=== PATIENT | female | born 1990 | race Two or more races ===

== ENCOUNTER 2025-08-28 02:52 | Inpatient (IN) | payer MEDICAID, OTHER ==
[~2025-08-28] VITALS: Ht 160 cm; Wt 97.5 kg
--- NOTE | 2025-08-28 03:18 | ED.PDOC ---
GI ASSESSMENT HPI Comments 35-year-old female with a past medical history of anxiety, depression, migraine and surgical history of lipoma (on the back) removal has come in to the ER for right upper quadrant abdominal pain. Patient reports that she woke up from sleep due to mild right upper quadrant pain which was 3/10 in intensity, which slowly increased to sharp pain, radiating towards the epigastric region, 9/10 in intensity, constant, with no aggravating or relieving factors, not associated with nausea, vomiting, diarrhea or any other symptoms. Patient denies chest pain, shortness of breath, urinary symptoms, palpitations, recent sick contacts, recent travel history. On inquiry, she states that she had some food which was oily and spicy before going to bed. On initial assessment, patient is A&O x4, in severe distress, vitals are stable temp 98, HR 74, RR 16, BP 126/69 mmHg and SpO2 at 98 in RA. Patient requires further workup and management. Chief Complaint: Abdominal Pain Time Seen by MD: 02:54 Reviewed Notes: Allergies Allergies: Coded Allergies: NO KNOWN ALLERGIES (Unverified , 08/28/25) Information Source: Patient Mode of Arrival: Ambulatory Timing: Hours Duration: Since onset Prehospital treatment: None Quality: Sharp Vomitus: None Stool: Normal Severity: Severe Recent: Other ( food consumption) Recent Hx of: None Pain Location: RUQ Modifying Factors: Nothing; Exertion, Food, Position, Movement, Antacids, Lying still Associated sign and symptoms: Abdominal Pain Past Medical History PAST MEDICAL HISTORY: Anxiety, Depression Past Medical History (Other): Migraine Surgical History (Other): Lipoma of back removal ELECTRIC SIGN WIRER History: Denies all ELECTRIC SIGN WIRER Hx Family History Family History: Reviewed,noncontributory to illness Family History (Other): Both parents have diabetes mellitus Social History Smoker: Non-Smoker Alcohol: Occasionally Drugs: Denies Drug Use Lives In: Home Constitutional: denies: chills, diaphoresis, fatigue, fever, malaise, sweats, weakness, others EENTM: denies: blurred vision, double vision, ear bleeding, ear discharge, ear drainage, ear pain, ear ringing, eye pain, eye redness, hearing loss, mouth pain, mouth swelling, nasal discharge, nose bleeding, nose congestion, nose pain, photophobia, tearing, throat pain, throat swelling, voice changes, others Respiratory: denies: cough, hemoptysis, orthopnea, SOB at rest, shortness of breath, SOB with excertion, stridor, wheezing, others Cardiovascular: denies: chest pain, dizzy spells, diaphoresis, Dyspnea on exertion, edema, irregular heart beat, left arm pain, lightheadedness, palpitations, PND, syncope, others Gastrointestinal: reports: abdominal pain; denies: abdomen distended, blood streaked bowels, constipated, diarrhea, dysphagia, difficulty swallowing, hematemesis, melena, nausea, poor appetite, poor fluid intake, rectal bleeding, rectal pain, vomiting, others Genitourinary: denies: abnormal vagina bleeding, burning, dyspareunia, dysuria, flank pain, frequency, hematuria, incontinence, pain, , vagina discharge, urgency, others Neurological: denies: dizziness, fainting, headache, left sided numbness, left sided weakness, numbness, paresthesia, pre-existing deficit, right sided n umbness, right sided weakness, seizure, speech problems, tingling, tremors, weakness, others Musculoskeletal: denies: back pain, gout, joint pain, joint swelling, muscle pain, muscle stiffness, neck pain, others Integumetry: denies: bruises, change in color, change in hair/nails, dryness, laceration, lesions, lumps, rash, wounds, others Allergic/Immunocompromised: denies: Difficulty Healing, Frequent Infections, Hives, Itching, others Hematologic/Lymphatic: denies: anemia, blood clots, easy bleeding, easy bruising, swollen glands, others Endocrine: denies: excessive hunger, excessive sweating, excessive thirst, excessive urination, flushing, intolerance to cold, intolerance to heat, unexplained weight gain, unexplained weight loss, others Psychiatric: denies: anxiety, bipolar disorder, depression, hopeless, panic disorder, schizophrenia, sleepless, suicidal, others Physical Exam General Appearance: Obese HEENT: Other (Maintains eye contact, no icterus, no pallor) Neck: Full Range of Motion, Other (No cervical lymphadenopathy, no JVD) Respiratory: No Accessory Muscle Use, Normal Breath Sounds, Other (No stridor, wheezing or rhonchi heard) Cardiovascular: No Edema, No JVD, No Murmur, Regular Rate/Rhythm Breast Exam: Deferred Gastrointestinal: Epigastric, No Organomegaly, No Pulsatile Mass, Normal Bowel Sounds, RUQ, Tenderness, Other (Mccoy's sign positive, No guarding, no rebound tenderness, no masses felt) Genitalia: Deferred Pelvic: Deferred Rectal: Deferred Extremities: Normal inspection, Normal range of motion, Non-tender Neurologic: Other (No sensory motor deficits, no facial droop) Cerebellar Function: Unable to Test Reflexes: Normal Skin: Normal Color Lymphatic: Other (No cervical lymphadenopathy) Was a procedure done? Was a procedure done?: No GI differential Dx Differential Diagnosis: Cholecystitis, Gastritis/PUD, Pancreatitis X-Ray, Labs, Meds, VS Vital Signs Date Time Temp Pulse Resp B/P (MAP) Pulse Ox O2 Delivery O2 Flow Rate FiO2 08/28/25 06:53 65 22 93/60 08/28/25 06:36 98.1 72 12 93/60 (71) 96 98.1 08/28/25 04:01 71 20 97 Room Air* 0 21 21 08/28/25 03:58 98.1 73 20 102/60 (74) 96 98.1 08/28/25 03:32 69 19 110/59 08/28/25 02:56 98.0 74 16 126/69 98 98.0 Lab Test 08/28/25 05:02 08/28/25 03:12 Range/Units Urine Color Light-yellow Yellow Urine Clarity Clear Clear Urine pH 5.0 5.0-9.0 Urine Specific [place] 1.010 1.001-1.035 Urine Protein Negative Negative Urine Ketones Negative Negative Urine Blood Negative Negative /uL Urine Nitrite Negative Negative Urine Bilirubin Negative Negative Urine Urobilinogen Normal Negative mg/dL Urine Leukocyte Esterase Trace Negative /uL Urine RBC None seen 0 - 4 /hpf Urine Microscopic WBC 1 0-5 /HPF Urine Squamous Epithelial Cells None seen <5 /hpf Urine Bacteria None seen None Seen /hpf Urine Mucus Few None Seen Urine Glucose Normal Normal mg/dL Urine Test Negative Negative White Blood Count 13.9 H 4.4-10.8 10^3/uL Red Blood Count 4.57 4.0-5.20 10^6/uL Hemoglobin 12.4 12.2-16.2 g/dL Hematocrit 37.4 36.0-46.0 % Mean Corpuscular Volume 81.9 80.0-100.0 fL Mean Corpuscular Hemoglobin 27.0 L 28.0-32.0 pg Mean Corpuscular Hemoglobin Concent 33.0 32.0-36.0 g/dL Red Cell Distribution Width 15.1 H 11.8-14.3 % Platelet Count 348 140-450 10^3/uL Mean Platelet Volume 7.0 6.9-10.8 fL Neutrophils (%) (Auto) 57.5 37.0-80.0 % Lymphocytes (%) (Auto) 36.0 10.0-50.0 % Monocytes (%) (Auto) 5.1 0.0-12.0 % Eosinophils (%) (Auto) 0.8 0.0-7.0 % Basophils (%) (Auto) 0.6 0.0-2.0 % Neutrophils # (Auto) 8.0 1.6-8.6 10 ^3/uL Lymphocytes # (Auto) 5.0 0.4-5.4 10 ^3/uL Monocytes # (Auto) 0.7 0-1.3 10 ^3/uL Eosinophils # (Auto) 0.1 0-0.8 10 ^3/uL Basophils # (Auto) 0.1 0-0.2 10 ^3/uL Nucleated Red Blood Cells 0.2 % Sodium Level 144 136-145 mmol/L Potassium Level 3.9 3.5-5.1 mmol/L Chloride Level 107 98-107 mmol/L Carbon Dioxide Level 25 20-31 mmol/L Anion Gap 12 5-15 Blood Urea Nitrogen 10 9-23 mg/dL Creatinine 0.70 0.550-1.02 mg/dL Glomerular Filtration Rate Calc 117 >90 mL/min BUN/Creatinine Ratio 14.3 10.0-20.0 Serum Glucose 106 74-106 mg/dL Calcium Level 9.2 8.7-10.4 mg/dL Total Bilirubin 0.3 0.2-1.0 mg/dL Aspartate Amino Transferase (AST) 55 H 13-40 U/L Alanine Aminotransferase (ALT) 25 7-40 U/L Alkaline Phosphatase 93 46-116 U/L Total Protein 6.7 5.7-8.2 g/dL Albumin 4.1 3.2-4.8 g/dL Lipase 61 H 12-53 U/L Current Medications Medications (Trade) Dose Ordered Sig/Joaquim Route Start Time Stop Time Status Last Admin Sodium Chloride 1,000 ml @ 1,000 mls/hr Q1H ONCE IV 08/28/25 03:15 08/28/25 04:14 DC 08/28/25 03:33 Ondansetron HCl (Zofran) 4 mg ONCE ONCE IV 08/28/25 03:15 08/28/25 03:16 DC 08/28/25 03:33 Morphine Sulfate 4 mg ONCE ONCE IV 08/28/25 03:15 08/28/25 03:16 DC 08/28/25 03:32 Pantoprazole Sodium (Protonix) 40 mg ONCE ONCE IV 08/28/25 03:15 08/28/25 03:16 DC 08/28/25 03:33 Images Reviewed?: Images reviewed and evaluated by me Time of 1ST Reevaluation: 03:45 Reevaluation 1ST: Improved Patient Education/Counseling: Diagnosis, Treatment Family Education/Counseling: No Family Present Comments Patient came in with right upper quadrant abdominal pain, radiating to the epigastric region. We gave her IV pantoprazole 40 mg, morphine sulfate 4 mg IV, ondansetron 4 mg IV and 1 bolus of sodium chloride 0.9% IV. CBC reveals high WBC count 13.9. BMP shows AST 55. Lipase levels is elevated- 61. An ultrasound of the abdomen of the right upper quadrant was ordered which showed Cholelithiasis. Patient requires inpatient admission for further management. HIDA scan has been ordered. SEPSIS Sepsis Screen Date sepsis recognized/suspect: Aug 28, 2025 Time Sepsis recognized/suspect: 0300 Recent Procedure: No On Antibiotic Therapy: No Respiratory Rate >20: No Heart Rate >90: No Temp<36 C (96.8 F) or >38.3 C: No SBP <90 or MAP <65 mmHG: No New Acute Mental Status Change: No Is the patient on CPAP, BIPAP,: No Physician Orders Abdomen Limited (08/28/25 03:04) Vital Signs Date Time Temp Pulse Resp B/P (MAP) Pulse Ox O2 Delivery O2 Flow Rate FiO2 08/28/25 06:53 65 22 93/60 08/28/25 06:36 98.1 72 12 93/60 (71) 96 98.1 08/28/25 04:01 71 20 97 Room Air* 0 21 21 08/28/25 03:58 98.1 73 20 102/60 (74) 96 98.1 08/28/25 03:32 69 19 110/59 08/28/25 02:56 98.0 74 16 126/69 98 98.0 Laboratory Tests Test 08/28/25 03:12 White Blood Count 13.9 10^3/uL (4.4-10.8) H Medications Medications Dose Ordered Sig/Joaquim Route Start Time Stop Time Status Last Admin Dose Admin Morphine Sulfate 4 mg ONCE ONCE IV 08/28/25 03:15 08/28/25 03:16 DC 08/28/25 03:32 Ondansetron HCl 4 mg ONCE ONCE IV 08/28/25 03:15 08/28/25 03:16 DC 08/28/25 03:33 Pantoprazole Sodium 40 mg ONCE ONCE IV 08/28/25 03:15 08/28/25 03:16 DC 08/28/25 03:33 Sodium Chloride 1,000 ml @ 1,000 mls/hr Q1H ONCE IV 08/28/25 03:15 08/28/25 04:14 DC 08/28/25 03:33 Departure 1 Departure Time of Disposition: 07:20 Impression: Primary Impression: Cholelithiasis Disposition: 09 ADMITTED INPATIENT Admit to: Med Surg Condition: Unstable Critical Care Note Critical Care Time?: No Stability Stability form required: No Heart Score Heart Score: Heart Score Response (Comments) Value History N/A 0 EKG N/A 0 Age N/A 0 Risk Factors N/A 0 Troponin N/A 0 Total 0 JARED HARTMAN RESIDENT Aug 28, 2025 03:18
[2025-08-28 03:21] LABS: Hematocrit 37.4 % (36.0-46.0); Hemoglobin 12.4 g/dL (12.2-16.2); Mean Corpuscular Hemoglobin 27.0 pg (28.0-32.0); Mean Corpuscular Volume 81.9 fL (80.0-100.0); Nucleated Red Blood Cells % 0.2 %
[2025-08-28] MEDS: MORPHINE SULFATE 4 MG/ML SYR/VIAL IV ONE (03:32)
[2025-08-28] MEDS: ONDANSETRON HCL 4 MG/2 ML VIAL IV ONE (03:33)
[2025-08-28] MEDS: SODIUM CHLORIDE 0.9% 1,000 ML IV ONE ×2 (03:33→11:49)
[2025-08-28] MEDS: PANTOPRAZOLE 40 MG/10 ML VIAL INJ IV ONE (03:33)
[2025-08-28 03:36] LABS: Alanine Aminotransferase 25 U/L (7-40); Albumin 4.1 g/dL (3.2-4.8); Alkaline Phosphatase 93 U/L (46-116); BUN/Creatinine Ratio 14.3 (10.0-20.0); Bilirubin, Total 0.3 mg/dL (0.2-1.0); Blood Urea Nitrogen 10 mg/dL (9-23); Calcium 9.2 mg/dL (8.7-10.4); Carbon Dioxide 25 mmol/L (20-31); Total Protein 6.7 g/dL (5.7-8.2)
[2025-08-28 03:39] LABS: Glucose 106 mg/dL (74-106); Lipase 61 U/L (12-53)
[2025-08-28 03:46] LABS: Anion Gap 12 (5-15); Potassium 3.9 mmol/L (3.5-5.1); Sodium 144 mmol/L (136-145)
[2025-08-28 03:53] LABS: Chloride 107 mmol/L (98-107)
[2025-08-28 04:01] VITALS: PULSE 71; RESP 20; O2SAT 97
[2025-08-28 05:41] LABS: Urine Protein, UAD Negative (Negative)
--- NOTE | 2025-08-28 07:07 | DVH ---
INDICATION: right upper quadrant pain TECHNIQUE: Multiple real-time sonographic images were obtained of the right upper quadrant. COMPARISON: None FINDINGS: The liver demonstrates homogeneous echotexture without focal mass lesions. The liver measures 14.8 cm. There is no intrahepatic or extrahepatic ductal dilatation. The common duct measures 0.6 cm. Cholelithiasis. The gallbladder wall measures 0.2 cm and is within normal limits. The right kidney measures 9.9 cm. The right kidney is normal in contour, size, and shape. The echogenicity is normal. There is no hydronephrosis. The pancreas is not well visualized due to overlying bowel gas. IMPRESSION: Cholelithiasis.
[2025-08-28 08:15] VITALS: PULSE 65; RESP 20; O2SAT 96
[2025-08-28] MEDS ORDERED: HYDROcodone-ACET 5/325MG TAB PO PRN (10:45)
[2025-08-28] MEDS ORDERED: ACETAMINOPHEN 325 MG TAB PO PRN (10:45)
[2025-08-28] MEDS ORDERED: DOCUSATE SOD 100 MG CAP PO PRN (10:45)
[2025-08-28] MEDS ORDERED: MORPHINE SULFATE INJ 2 MG/ml SYRG IV PRN (10:45)
[2025-08-28] MEDS ORDERED: ONDANSETRON HCL 4 MG/2 ML VIAL IV PRN ×2 (10:45→15:30)
--- NOTE | 2025-08-28 10:45 | DVHHP2 ---
History of Present Illness Reason for Visit: Abdominal Pain History of Present Illness Kira Jordan is a 35-year-old female with past medical history of migraines, and GERD, who came to the hospital for abdominal pain. Patient states she last ate last night food about 1900. She became bloated shortly after eating, but went to bed. Was woken up about 0230 due to pain. She thought she needed to go to the bathroom, but nothing would come out. After going back to bed her pain increased significantly where she woke up her and came to the ER. Patient states she was on Zepbound for about 2-3 months, but stopped taking it recently due to the side effects. She was experiencing nausea, vomiting, and constipation. Patient did get a tattoo yesterday as well. COUNTER CASER: Migraine GI: GERD Past Surgical History: Other (lipoma removal from back), Tonsillectomy Smoke: Quit (1 year ago) ALCOHOL: rare Drugs: None Lives: with Family Domestic Violence: Neg Review of Systems Constitutional: No: Fever, Chills, Sweats, Weakness, Malaise, Other Eyes: No: Pain, Vision change, Conjunctivae inflammation, Eyelid inflammation, Other, Redness ENT: No: Ear pain, Ear discharge, Nose pain, Nose discharge, Nose congestion, Mouth pain, Mouth swelling, Throat pain, Throat swelling, Other Respiratory: No: Cough, Dry, Shortness of breath, SOB with excertion, Wheezing, Hemoptysis, Pleuritic Pain, Sputum, Wheezing, Other Cardiovascular: No: Chest Pain, Palpitations, Orthopnea, Paroxysmal Noc. Dyspnea, Edema, Lt Headedness, Other Gastrointestinal: Abdominal Pain, Other (bloating); No: Nausea, Vomiting, Diarrhea, Constipation, Melena, Hematochezia Genitourinary: No Dysuria, No Frequency, No Incontinence, No Hematuria, No Retention, No Other Musculoskeletal: No: other, neck pain, shoulder pain, arm pain, back pain, hand pain, leg pain, foot pain Skin: No: Rash, Lesions, Jaundice, Bruising, Other Neurological: No: Weakness, Numbness, Incoordination, Change in speech, Confusion, Seizures, Other Allergies: Coded Allergies: NO KNOWN ALLERGIES (Unverified , 08/28/25) Medications Current Medications Medications Dose Ordered Sig/Joaquim Route Start Time Stop Time Status Last Admin Dose Admin Sodium Chloride 1,000 ml @ 100 mls/hr Q10H IV 08/28/25 10:45 UNV Acetaminophen/ Hydrocodone Bitart 1 tab Q4HP PRN PO 08/28/25 10:45 UNV Ondansetron HCl 4 mg Q4HP PRN IV 08/28/25 10:45 UNV Docusate Sodium 100 mg BIDPRN PRN PO 08/28/25 10:45 UNV Acetaminophen 650 mg Q6HP PRN PO 08/28/25 10:45 UNV Morphine Sulfate 2 mg Q4HPRN PRN IV 08/28/25 10:45 UNV Exam Vital Signs Vital Signs Date Time Temp Pulse Resp B/P (MAP) Pulse Ox O2 Delivery O2 Flow Rate FiO2 08/28/25 08:15 65 20 96 Room Air* 0 21 08/28/25 07:15 98.2 102/66 (78) 98.2 General Appearance: Alert, Oriented X3, Cooperative, mild distress HEENT: Atraumatic, PERRLA, Mucous membr. moist/pink Respiratory: Clear to auscultation, Normal air movement Cardiovascular: Regular rate, Normal S1, Normal S2, No murmurs Abdominal: Other (RUQ tenderness) Extremities: No clubbing, No cyanosis, No edema, Normal pulses Skin: No rashes, No breakdown, No significant lesion Neuro: Normal gait, Normal speech, Strength at 5/5 X4 ext, Normal tone Psych/Mental Status: Mental status NL, Mood NL Labs/Xrays Labs Test 08/28/25 05:02 08/28/25 03:12 Range/Units Urine Color Light-yellow Yellow Urine Clarity Clear Clear Urine pH 5.0 5.0-9.0 Urine Specific [place] 1.010 1.001-1.035 Urine Protein Negative Negative Urine Ketones Negative Negative Urine Blood Negative Negative /uL Urine Nitrite Negative Negative Urine Bilirubin Negative Negative Urine Urobilinogen Normal Negative mg/dL Urine Leukocyte Esterase Trace Negative /uL Urine RBC None seen 0 - 4 /hpf Urine Microscopic WBC 1 0-5 /HPF Urine Squamous Epithelial Cells None seen <5 /hpf Urine Bacteria None seen None Seen /hpf Urine Mucus Few None Seen Urine Glucose Normal Normal mg/dL Urine Test Negative Negative White Blood Count 13.9 H 4.4-10.8 10^3/uL Red Blood Count 4.57 4.0-5.20 10^6/uL Hemoglobin 12.4 12.2-16.2 g/dL Hematocrit 37.4 36.0-46.0 % Mean Corpuscular Volume 81.9 80.0-100.0 fL Mean Corpuscular Hemoglobin 27.0 L 28.0-32.0 pg Mean Corpuscular Hemoglobin Concent 33.0 32.0-36.0 g/dL Red Cell Distribution Width 15.1 H 11.8-14.3 % Platelet Count 348 140-450 10^3/uL Mean Platelet Volume 7.0 6.9-10.8 fL Neutrophils (%) (Auto) 57.5 37.0-80.0 % Lymphocytes (%) (Auto) 36.0 10.0-50.0 % Monocytes (%) (Auto) 5.1 0.0-12.0 % Eosinophils (%) (Auto) 0.8 0.0-7.0 % Basophils (%) (Auto) 0.6 0.0-2.0 % Neutrophils # (Auto) 8.0 1.6-8.6 10 ^3/uL Lymphocytes # (Auto) 5.0 0.4-5.4 10 ^3/uL Monocytes # (Auto) 0.7 0-1.3 10 ^3/uL Eosinophils # (Auto) 0.1 0-0.8 10 ^3/uL Basophils # (Auto) 0.1 0-0.2 10 ^3/uL Nucleated Red Blood Cells 0.2 % Sodium Level 144 136-145 mmol/L Potassium Level 3.9 3.5-5.1 mmol/L Chloride Level 107 98-107 mmol/L Carbon Dioxide Level 25 20-31 mmol/L Anion Gap 12 5-15 Blood Urea Nitrogen 10 9-23 mg/dL Creatinine 0.70 0.550-1.02 mg/dL Glomerular Filtration Rate Calc 117 >90 mL/min BUN/Creatinine Ratio 14.3 10.0-20.0 Serum Glucose 106 74-106 mg/dL Calcium Level 9.2 8.7-10.4 mg/dL Total Bilirubin 0.3 0.2-1.0 mg/dL Aspartate Amino Transferase (AST) 55 H 13-40 U/L Alanine Aminotransferase (ALT) 25 7-40 U/L Alkaline Phosphatase 93 46-116 U/L Total Protein 6.7 5.7-8.2 g/dL Albumin 4.1 3.2-4.8 g/dL Lipase 61 H 12-53 U/L TECHNIQUE: Multiple real-time sonographic images were obtained of the right upper quadrant. FINDINGS: The liver demonstrates homogeneous echotexture without focal mass lesions. The liver measures 14.8 cm. There is no intrahepatic or extrahepatic ductal dilatation. The common duct measures 0.6 cm. Cholelithiasis. The gallbladder wall measures 0.2 cm and is within normal limits. The right kidney measures 9.9 cm. The right kidney is normal in contour, size, a nd shape. The echogenicity is normal. There is no hydronephrosis. The pancreas is not well visualized due to overlying bowel gas. IMPRESSION: Cholelithiasis. SEPSIS Sepsis Screen Date sepsis recognized/suspect: Aug 28, 2025 Time Sepsis recognized/suspect: 814 Recent Procedure: No On Antibiotic Therapy: Yes Respiratory Rate >20: No Heart Rate >90: No Temp<36 C (96.8 F) or >38.3 C: No SBP <90 or MAP <65 mmHG: No New Acute Mental Status Change: No Is the patient on CPAP, BIPAP,: No Physician Orders Abdomen Limited (08/28/25 03:04) Nm Hida Scan (08/28/25 07:20) Admit (08/28/25 10:40) Code Status (08/28/25 10:40) Sodium Chloride 0.9% (08/28/25 10:45) Hydrocodone-Acet 5/325mg Tab (Shanks 5/32 (08/28/25 10:45) Ondansetron Hcl (Zofran) (08/28/25 10:45) Docusate Sodium Capsule (Colace Capsule) (08/28/25 10:45) Complete Blood Count (08/29/25 04:00) Comprehensive Metabolic Panel (08/29/25 04:00) Npo (Nothing By Mouth) Diet (08/28/25 Lunch) Condition: Serious (08/28/25 10:40) Acetaminophen Tablet (Tylenol Tablet) (08/28/25 10:45) Morphine Sulfate Injection (08/28/25 10:45) * Surgical Consult (08/28/25 ) Vital Signs Date Time Temp Pulse Resp B/P (MAP) Pulse Ox O2 Delivery O2 Flow Rate FiO2 08/28/25 08:15 65 20 96 Room Air* 0 21 08/28/25 07:15 98.2 65 20 102/66 (78) 96 98.2 08/28/25 06:53 65 22 93/60 08/28/25 06:36 98.1 72 12 93/60 (71) 96 98.1 08/28/25 04:01 71 20 97 Room Air* 0 21 21 08/28/25 03:58 98.1 73 20 102/60 (74) 96 98.1 08/28/25 03:32 69 19 110/59 08/28/25 02:56 98.0 74 16 126/69 98 98.0 Laboratory Tests Test 08/28/25 03:12 White Blood Count 13.9 10^3/uL (4.4-10.8) H Medications Medications Dose Ordered Sig/Joaquim Route Start Time Stop Time Status Last Admin Dose Admin Morphine Sulfate 4 mg ONCE ONCE IV 08/28/25 03:15 08/28/25 03:16 DC 08/28/25 03:32 4 MG Ondansetron HCl 4 mg ONCE ONCE IV 08/28/25 03:15 08/28/25 03:16 DC 08/28/25 03:33 4 MG Pantoprazole Sodium 40 mg ONCE ONCE IV 08/28/25 03:15 08/28/25 03:16 DC 08/28/25 03:33 40 MG Sodium Chloride 1,000 ml @ 1,000 mls/hr Q1H ONCE IV 08/28/25 03:15 08/28/25 04:14 DC 08/28/25 03:33 1,000 MLS/HR Assessment/Plan Assessment/Plan Assessment: Cholelithiasis, Leukocytosis, Transaminitis, Febrile, Plan: Admit to Med-Surg, Surgical consult, NPO, IV hydration, IV antibiotics, Possible MRCP depending on Hida Scan results, Home medications reconciled, Plan discussed with: Patient My Orders Orders - KAROLYN AHUJA [employer]NAGER [employer]IV[employer] Procedure Category Date Status Time Admit ADMIT 08/28/25 Transmitted 10:40 Code Status CODE 08/28/25 Transmitted 10:40 Sodium Chloride 0.9% PHA 08/28/25 Logged 10:45 Hydrocodone-Acet PHA 08/28/25 Logged 5/325mg Tab (Shanks 10:45 Ondansetron Hcl PHA 08/28/25 Logged (Zofran) 10:45 Docusate Sodium PHA 08/28/25 Logged Capsule (Colace 10:45 Complete Blood Count LAB 08/29/25 Verified 04:00 Comprehensive LAB 08/29/25 Verified Metabolic Panel 04:00 Npo (Nothing By DIET 08/28/25 Transmitted Mouth) Diet Lunch Condition: Serious NATALIIA 08/28/25 In Process 10:40 Acetaminophen Tablet PHA 08/28/25 Logged (Tylenol Tablet) 10:45 Morphine Sulfate PHA 08/28/25 Logged Injection 10:45 * Surgical Consult CONS 08/28/25 Transmitted Date of Service: Aug 28, 2025 Billing Provider: KAROLYN AHUJA Common Visit Codes: [id number] INP/OBS CARE (MOD) KAROLYN AHUJA Aug 28, 2025 10:45
--- NOTE | 2025-08-28 11:21 | DVH ---
Procedure: NM NM HIDA SCAN Exam Date: 08/28/2025 07:45 AM Clinical History: Cholelithiasis on ultrasound Comparison Study: None Nuclear Medicine Hepatobiliary Scan. Technique: Following the intravenous administration of 5 mCi of technetium 99m labeled Choletec multiple planar abdominal planar images were obtained in anterior projection in 5 minute intervals for 30 minutes . Right lateral images were obtained at 60 minutes after injection. Findings/Impression: The liver appears grossly normal in size. Gallbladder and small bowel are not definitively visualized which may reflect hepatic dysfunction or cholecystitis/ common bile duct obstruction. If indicated, consider further evaluation with MRCP.
[2025-08-28 11:30] VITALS: BP 96/59; PULSE 64; RESP 16; TEMP 97.8; O2SAT 97
[2025-08-28] MEDS: SODIUM CHLORIDE 0.9% 1,000 ML IV SCH (11:45)
[2025-08-28] MEDS ORDERED: OMEP-448 PO (12:03)
[2025-08-28] MEDS: BUPIVACAINE HCL 0.25% P/F 10 ML VIAL ONE (12:32)
[2025-08-28] MEDS: FAMOTIDINE (10MG/ML) 2ML VL IV ONE (13:05)
--- NOTE | 2025-08-28 13:07 | DVHINCON2 ---
Consultation - Surgical Date Seen: Aug 28, 2025 Referring Physician Reason for Consultation Cholecystitis History of Present Illness History of Present Illness Mrs. Jordan is a 35-year-old female who presents with right upper quadrant pain that awoke her last night around 2:30 a.m.. Last meal was some spicy foods, which triggered the pain. She has never felt this pain before. Denies nausea and/or vomiting. Denies fevers, chills, changes in urinary or stooling habits. Past Medical/Surgical History Past Medical/Surgical History Past medical history GERD, migraines Past surgical history right flank lipoma excision, tonsillectomy Family and Social History Family and Social History Family history noncontributory ETOH/T Ob/drugs denies Allergies and medications Allergies: Coded Allergies: NO KNOWN ALLERGIES (Unverified , 08/28/25) Home Meds Reported Medications Omeprazole (Omeprazole Dr) 40 Mg Cap, 40 MG PO DAILY, CAP 08/28/25 Review of systems Review of Systems: Deferred Examination Vital signs Vital Signs Date Time Temp Pulse Resp B/P (MAP) Pulse Ox O2 Delivery O2 Flow Rate FiO2 08/28/25 11:30 97.8 64 16 96/59 (71) 97 97.8 08/28/25 08:15 Room Air* 0 21 Medications Current Medications Medications (Trade) Dose Ordered Sig/Joaquim Route PRN Reason Start Time Stop Time Status Last Admin Sodium Chloride 1,000 ml @ 100 mls/hr Q10H IV 08/28/25 10:45 08/28/25 11:45 Acetaminophen/ Hydrocodone Bitart (Sigel 5/325MG Tab) 1 tab Q4HP PRN PO MODERATE PAIN (4-6 PAIN SCALE) 08/28/25 10:45 Ondansetron HCl (Zofran) 4 mg Q4HP PRN IV NAUSEA / VOMITING 08/28/25 10:45 Docusate Sodium (Colace Capsule) 100 mg BIDPRN PRN PO FOR CONSTIPATION 08/28/25 10:45 Acetaminophen (Tylenol Tablet) 650 mg Q6HP PRN PO PAIN SCALE 1-3 OR TEMP>100.4 08/28/25 10:45 Morphine Sulfate 2 mg Q4HPRN PRN IV SEVERE PAIN (7-10 PAIN SCALE) 08/28/25 10:45 Ceftriaxone Sodium 50 ml @ 100 mls/hr DAILY@09 IV 08/29/25 09:00 Pantoprazole Sodium (Protonix) 40 mg DAILY IV 08/29/25 10:00 UNV Laboratory Labs Test 08/28/25 05:02 08/28/25 03:12 Range/Units Urine Color Light-yellow Yellow Urine Clarity Clear Clear Urine pH 5.0 5.0-9.0 Urine Specific [place] 1.010 1.001-1.035 Urine Protein Negative Negative Urine Ketones Negative Negative Urine Blood Negative Negative /uL Urine Nitrite Negative Negative Urine Bilirubin Negative Negative Urine Urobilinogen Normal Negative mg/dL Urine Leukocyte Esterase Trace Negative /uL Urine RBC None seen 0 - 4 /hpf Urine Microscopic WBC 1 0-5 /HPF Urine Squamous Epithelial Cells None seen <5 /hpf Urine Bacteria None seen None Seen /hpf Urine Mucus Few None Seen Urine Glucose Normal Normal mg/dL Urine Test Negative Negative White Blood Count 13.9 H 4.4-10.8 10^3/uL Red Blood Count 4.57 4.0-5.20 10^6/uL Hemoglobin 12.4 12.2-16.2 g/dL Hematocrit 37.4 36.0-46.0 % Mean Corpuscular Volume 81.9 80.0-100.0 fL Mean Corpuscular Hemoglobin 27.0 L 28.0-32.0 pg Mean Corpuscular Hemoglobin Concent 33.0 32.0-36.0 g/dL Red Cell Distribution Width 15.1 H 11.8-14.3 % Platelet Count 348 140-450 10^3/uL Mean Platelet Volume 7.0 6.9-10.8 fL Neutrophils (%) (Auto) 57.5 37.0-80.0 % Lymphocytes (%) (Auto) 36.0 10.0-50.0 % Monocytes (%) (Auto) 5.1 0.0-12.0 % Eosinophils (%) (Auto) 0.8 0.0-7.0 % Basophils (%) (Auto) 0.6 0.0-2.0 % Neutrophils # (Auto) 8.0 1.6-8.6 10 ^3/uL Lymphocytes # (Auto) 5.0 0.4-5.4 10 ^3/uL Monocytes # (Auto) 0.7 0-1.3 10 ^3/uL Eosinophils # (Auto) 0.1 0-0.8 10 ^3/uL Basophils # (Auto) 0.1 0-0.2 10 ^3/uL Nucleated Red Blood Cells 0.2 % Sodium Level 144 136-145 mmol/L Potassium Level 3.9 3.5-5.1 mmol/L Chloride Level 107 98-107 mmol/L Carbon Dioxide Level 25 20-31 mmol/L Anion Gap 12 5-15 Blood Urea Nitrogen 10 9-23 mg/dL Creatinine 0.70 0.550-1.02 mg/dL Glomerular Filtration Rate Calc 117 >90 mL/min BUN/Creatinine Ratio 14.3 10.0-20.0 Serum Glucose 106 74-106 mg/dL Calcium Level 9.2 8.7-10.4 mg/dL Total Bilirubin 0.3 0.2-1.0 mg/dL Aspartate Amino Transferase (AST) 55 H 13-40 U/L Alanine Aminotransferase (ALT) 25 7-40 U/L Alkaline Phosphatase 93 46-116 U/L Total Protein 6.7 5.7-8.2 g/dL Albumin 4.1 3.2-4.8 g/dL Lipase 61 H 12-53 U/L Examination: GENERAL:Normal (AAO x3), HEENT:Normal (No icterus), LUNGS:Normal (Nonlabored breathing with symmetric expansion), ABDOMEN:Normal (Nondistended, soft, depressible, no scars, right upper quadrant tenderness without rebound or guarding), SKIN:Normal (No jaundice) Problem List/Assessment/Plan Problems: (1) Cholecystitis Assessment and Plan Mrs. Jordan is a 35-year-old female who presents with symptomatic cholelithiasis versus early acute cholecystitis. Ultrasound shows multiple gallstones without pericholecystic fluid or gallbladder wall thickening. On physical exam patient is very tender in the right upper quadrant. Patient will benefit from laparoscopic cholecystectomy. Procedure, risks, benefits, complications, and alternatives discussed with the patient. 1. On-call to OR for laparoscopic cholecystectomy 2. NPO Plan discussed with Plan discussed with: Patient, Spouse Visit Coding Surgery Date of Service if different f: Aug 28, 2025 Billing Provider: JAIDEN MONTESINOS MD Surgery Visit Codes: [id number] - INP CONSULT <110 MIN JAIDEN MONTESINOS MD Aug 28, 2025 13:07
[2025-08-28] MEDS ORDERED: fentaNYL CITRATE 100 MCG/2 ML VL ONE (13:09)
[2025-08-28] MEDS ORDERED: ROCURONIUM 10MG/ML 10ML VIAL IV ONE (13:10)
[2025-08-28] MEDS ORDERED: HYDROmorphone HCL 2 MG/ML VL/or syr ONE (13:10)
[2025-08-28] MEDS ORDERED: ONDANSETRON HCL 4 MG/2 ML VIAL ONE (13:10)
[2025-08-28] MEDS ORDERED: MIDAZOLAM HCL 2MG/2ML 2ml VIAL (1mg/ml) ONE (13:10)
[2025-08-28] MEDS ORDERED: GLYCOPYRROLATE 0.2 MG/ML 1ML VIAL ONE (13:10)
[2025-08-28] MEDS ORDERED: LIDOCAINE 2% (LOCAL ANESTH.) PF 5ml SDV ONE (13:10)
[2025-08-28] MEDS ORDERED: PROPOFOL 10 MG/ML 20 ML IV ONE (13:10)
[2025-08-28] MEDS ORDERED: KETOROLAC TROMETH 30 MG/ML 1ML VIAL ONE (13:10)
[2025-08-28] MEDS ORDERED: KETAMINE 50mg/ML 1ml syringe ONE (13:11)
[2025-08-28] MEDS: ACETAMINOPHEN IV 100 ML IV ONE (13:28)
[2025-08-28 14:05] LABS: INR 0.99 (0.9-1.15); Prothrombin Time 10.5 sec (9.3-11.8)
[2025-08-28] MEDS ORDERED: SUGAMMADEX 200mg/2ml Vial (100MG/ML) IV ONE (14:13)
[2025-08-28] MEDS: BUPIVACAINE 0.25% INJ 50ML VIAL ONE (14:45)
[2025-08-28 15:10] VITALS: PULSE 81; RESP 20; O2SAT 100
[2025-08-28] MEDS ORDERED: HYDROcodone-ACET 10/325MG TAB PO PRN (15:15)
--- NOTE | 2025-08-28 15:20 | DVHOP2 ---
Operative Report - 2 Report Details Date: 08/28/25 Preop Diagnosis: Symptomatic cholelithiasis versus early acute cholecystitis Postop Diagnosis: Symptomatic cholelithiasis Surgeon: Jamie Ozuna MD Anesthesiologist: Dr. Hitchcock Anesthesia: General Consent: The patient was informed of the risks and benefits of the procedure. These include but are not limited to complications of anesthesia, postoperative infection, incomplete relief of symptoms, recurrence of symptoms, damage to blood vessels, nerves and tendons, deep venous thrombosis, pulmonary embolism and possible need for repeat surgery in the future. Complications: None Estimated Blood Loss: 5 mL Findings: Normal appearing gallbladder with minimal omental adhesions to the infundibulum Indications for Surgery: Gallbladder pain since 2:30 a.m. Name of Procedure Performed Laparoscopic cholecystectomy Procedure Details Procedure Details: Upon arriving to the operating room the patient was transferred to the operating table and placed in the supine position with arms extended. General endotracheal anesthesia was induced. Time-out was observed. Patient was prepped and draped in the standard sterile surgical fashion with chlorhexidine. I then proceeded to make a infraumbilical curvilinear incision and carried it down to the fascia. Once at the fascia I grasped the umbilical stalk with Blanca clamp and walked it down to its base. Once at the base of the umbilical stalk I gained entry into the peritoneal cavity utilizing Hernadez technique. I then placed a fascial retention stitch of 0 Vicryl in [id number] fashion. I then introduced the Hernadez trocar and insufflated the peritoneal cavity to 15 mmHg with toleration. I then placed a 10 mm 30 degree laparoscope, surveyed the entry site, no injuries noted. Patient was then placed in the reverse Trend elenburg [id number] position. I then placed 3 additional working ports, 5 mm in size, at the epigastric area, right midclavicular subcostal area, and right flank area. I then directed my attention to the liver and gallbladder. The the liver was fatty and gallbladder was normal-appearing with minimal omental adhesions to infundibular area. I then proceeded to grasped the gallbladder at its fundus and retracted cephalad and towards the right shoulder. I placed a 2nd grasper at the infundibulum retracted laterally, thus exposing Calot triangle. I then proceeded to incise the overlying peritoneum at the base of the gallbladder and carried the opening up to make the gallbladder towards the liver. I then proceeded to clear cholesterol angle off of all fibrous and fatty tissue until 2 and only 2 structures were identified, cystic duct and cystic artery. Critical view of safety was obtained. I then placed 2 5 mm clips proximal in the cystic artery and 1 distal. I then milked the cystic duct for any stones, there were none. I then placed 3 5 mm clips proximal in the cystic duct and 1 distal. I then transected the cystic duct and cystic artery. I then proceeded to remove the gallbladder off of his liver attachments with cautery. Once the gallbladder was completely off the liver it was placed in the Endo- Catch bag and taken out of the peritoneal cavity through the infraumbilical site under direct vision. I then proceeded to take a look at the gallbladder fossa, and there was a small area of ooze, that was cauterized. Hemostasis achieved. I then serial irrigation, to remove some of the blood until effluent was clear. I then took a look at all the clips and they were intact. This concluded the intraperitoneal portion of the operation. I then removed the 5 mm working ports under direct vision, no bleeding coming from the abdominal wall. The peritoneal cavity was allowed to fully desufflate. Previous fascial retention stitch was closed. All counts were complete and correct at the end of procedure. Marcaine 0.25% was used as local anesthetic. All skin sites were closed with 4-0 Monocryl and Dermabond. Patient tolerated the procedure well and was transferred to PACU in stable condition. Specimen: Gallbladder and contents Condition Stable Disposition Still a Patient JAMIE MONTESINOS MD Aug 28, 2025 15:20
[2025-08-28] MEDS ORDERED: HYDROmorphone HCL 2 MG/ML VL/or syr IV PRN (15:30)
[2025-08-28 17:03] VITALS: BP 110/75; PULSE 71; RESP 16; TEMP 97.6; O2SAT 97
[2025-08-28] MEDS: ACETAMINOPHEN 325 MG TAB PO SCH (19:06)
[2025-08-28 21:00] VITALS: BP 98/66; PULSE 52; RESP 17; TEMP 98; O2SAT 97
[2025-08-28] MEDS: KETOROLAC TROMETH 30 MG/ML 1ML VIAL IV SCH (22:01)
[2025-08-29] VITALS (7 sets, daily range): BP systolic 86–109; BP diastolic 57–76; PULSE 58–72; RESP 16–18; TEMP 97.6–98.2; O2SAT 96–97
[2025-08-29] MEDS: HYDROcodone-ACET 5/325MG TAB PO PRN (03:51)
[2025-08-29 06:39] LABS: Hematocrit 34.6 % (36.0-46.0); Hemoglobin 11.6 g/dL (12.2-16.2); Mean Corpuscular Hemoglobin 27.6 pg (28.0-32.0); Mean Corpuscular Volume 82.3 fL (80.0-100.0); Nucleated Red Blood Cells % 0.0 %
[2025-08-29 06:59] LABS: Albumin 3.7 g/dL (3.2-4.8); Anion Gap 12 (5-15); BUN/Creatinine Ratio 10.7 (10.0-20.0); Bilirubin, Total 0.8 mg/dL (0.2-1.0); Carbon Dioxide 22 mmol/L (20-31); Potassium 3.8 mmol/L (3.5-5.1); Sodium 142 mmol/L (136-145); Total Protein 6.1 g/dL (5.7-8.2)
[2025-08-29 07:01] LABS: Alanine Aminotransferase 801 U/L (7-40); Alkaline Phosphatase 201 U/L (46-116); Blood Urea Nitrogen 6 mg/dL (9-23); Calcium 8.7 mg/dL (8.7-10.4); Chloride 108 mmol/L (98-107); Glucose 114 mg/dL (74-106)
[2025-08-29 08:46] LABS: Bilirubin, Direct 0.3 mg/dL (<0.3)
[2025-08-29] MEDS: PANTOPRAZOLE 40 MG/10 ML VIAL INJ IV SCH (09:13)
--- NOTE | 2025-08-29 12:00 | DVHPN2 ---
Progress Note Date Seen: Aug 29, 2025 Medical Necessity Reason Pt with a Central, PICC or Fol: No Subjective Patient reports: No new complaints Review of Systems: HEENT:Normal, CVS:Normal, RESPIRATORY:Normal, GI:Normal, :Normal, MSK:Normal, NEURO:Normal Objective vital signs Vital Sign Date Time Temp Pulse Resp B/P (MAP) Pulse Ox O2 Delivery O2 Flow Rate FiO2 08/29/25 08:49 97.7 62 16 91/63 (72) 96 97.7 08/28/25 20:00 Room Air* 0 21 Total Intake and Output 08/28/25 08/28/25 08/29/25 15:00 23:00 07:00 Intake Total 0 ml 900 ml Balance 0 ml 900 ml medications Current Medications Medications Dose Ordered Sig/Joaquim Route Start Time Stop Time Status Last Admin Dose Admin Sodium Chloride 1,000 ml @ 100 mls/hr Q10H IV 08/28/25 10:45 08/29/25 06:51 100 MLS/HR Ondansetron HCl 4 mg Q4HP PRN IV 08/28/25 10:45 Docusate Sodium 100 mg BIDPRN PRN PO 08/28/25 10:45 Ceftriaxone Sodium 50 ml @ 100 mls/hr DAILY@09 IV 08/29/25 09:00 08/29/25 09:12 100 MLS/HR Pantoprazole Sodium 40 mg DAILY IV 08/29/25 10:00 08/29/25 09:13 40 MG Acetaminophen/ Hydrocodone Bitart 1 tab Q4HP PRN PO 08/28/25 15:15 Acetaminophen/ Hydrocodone Bitart 1 tab Q4HPRN PRN PO 08/28/25 15:15 08/29/25 09:33 1 TAB Acetaminophen 650 mg Q6HR PO 08/28/25 18:00 08/29/25 00:18 650 MG Ketorolac Tromethamine 15 mg Q8HR IV 08/28/25 22:00 09/02/25 21:59 08/29/25 06:15 15 MG Examination: GENERAL:Normal, HEENT:Normal, NECK:Normal, LUNGS:Normal, CVS:Normal, ABDOMEN:Normal, MSK:Normal, SKIN:Normal, NEURO:Normal, :Normal laboratory and microbiology Laboratory Tests 08/29/25 04:42 Test 08/29/25 04:42 Range/Units Serum Glucose 114 H 74-106 mg/dL Problem List/Assessment/Plan Problem List/Assessment/Plan #1 acute eulalio with gallstones with sepsis: ivf, s/p surg, iv antibiotics #2 morbid obesity #3 migraines #4 gerd Plan discussed with: Patient My Orders My Orders Orders - BALDEV ARELLANO MD Procedure Category Date Status Time Metronidazole Ivpb PHA 08/29/25 Verified Flagyl 14:00 Complete Blood Count LAB 08/30/25 Verified 06:00 Comprehensive LAB 08/30/25 Verified Metabolic Panel 06:00 Date of Service: Aug 29, 2025 Billing Provider: BALDEV ARELLANO MD Common Visit Codes: [id number] INP/OBS CARE(HIGH) BALDEV ARELLANO MD Aug 29, 2025 12:00
--- NOTE | 2025-08-29 14:08 | DVHPN2 ---
Progress Note - Surgical Date Seen: Aug 29, 2025 Post op day Post op day: 1 Subjective Patient reports: Feels better (Patient feeling better, some pain around the umbilical site, afebrile with vital stable, tolerating diet.) Review of Systems: Deferred Objective Vital signs Vital Sign Date Time Temp Pulse Resp B/P (MAP) Pulse Ox O2 Delivery O2 Flow Rate FiO2 08/29/25 12:55 98.1 68 16 92/57 (69) 97 98.1 08/29/25 08:00 Room Air* 0 21 Total Intake and Output 08/28/25 08/28/25 08/29/25 15:00 23:00 07:00 Intake Total 0 ml 900 ml Balance 0 ml 900 ml Medications Current Medications Medications Dose Ordered Sig/Joaquim Route Start Time Stop Time Status Last Admin Dose Admin Sodium Chloride 1,000 ml @ 100 mls/hr Q10H IV 08/28/25 10:45 08/29/25 06:51 100 MLS/HR Ondansetron HCl 4 mg Q4HP PRN IV 08/28/25 10:45 Docusate Sodium 100 mg BIDPRN PRN PO 08/28/25 10:45 Ceftriaxone Sodium 50 ml @ 100 mls/hr DAILY@09 IV 08/29/25 09:00 08/29/25 09:12 100 MLS/HR Pantoprazole Sodium 40 mg DAILY IV 08/29/25 10:00 08/29/25 09:13 40 MG Acetaminophen/ Hydrocodone Bitart 1 tab Q4HP PRN PO 08/28/25 15:15 Acetaminophen/ Hydrocodone Bitart 1 tab Q4HPRN PRN PO 08/28/25 15:15 08/29/25 09:33 1 TAB Acetaminophen 650 mg Q6HR PO 08/28/25 18:00 08/29/25 11:59 650 MG Ketorolac Tromethamine 15 mg Q8HR IV 08/28/25 22:00 09/02/25 21:59 08/29/25 06:15 15 MG Metronidazole 100 ml @ 100 mls/hr Q8HR IV 08/29/25 14:00 Laboratory Laboratory Tests 08/29/25 04:42 Test 08/29/25 04:42 Range/Units Serum Glucose 114 H 74-106 mg/dL Examination: GENERAL:Normal (AAO x3), HEENT:Normal (No scleral icterus), LUNGS:Normal (Nonlabored breathing with symmetric expansion), ABDOMEN:Normal (Nondistended, incision sites with overlying skin glue, infraumbilical ecchymosis, soft, depressible, appropriate tenderness), SKIN:Normal (No jaundice) Labs and/or images reviewed: Labs reviewed by me (Leukocytosis 12.2 from 13.9, hemoglobin stable, transaminitis but with normal bilirubin levels) Problem List/Assessment/Plan Assessment and Plan Mrs. Jordan is a 35-year-old female who is currently postop day 1 from laparoscopic cholecystectomy for early cholecystitis versus symptomatic cholelithiasis. Patient doing well, tolerating diet, appropriate tenderness. Has transaminitis likely due to liver manipulation during the surgery. Total bilirubin levels within normal limits. 1. Low-fat diet 2. Out of bed and ambulate 3. Pain and nausea control 4. A.m. labs My Orders My Orders Orders - JAIDEN MONTESINOS MD Procedure Category Date Status Time Hydrocodone-Acet PHA 08/28/25 In Process 10/325mg Tab ([place] 15:15 Hydrocodone-Acet PHA 08/28/25 In Process 5/325mg Tab ([place] 15:15 Acetaminophen Tablet PHA 08/28/25 In Process (Tylenol Tablet) 18:00 Ketorolac Injection PHA 08/28/25 In Process (Toradol Injection) 22:00 Cardiac DIET 08/28/25 Transmitted Diet-2gna,Lofat,Lochol Dinner Bilirubin, Direct LAB 08/30/25 Verified 04:00 Plan discussed with Plan discussed with: Patient Visit Coding Surgery Date of Service if different f: Aug 29, 2025 Billing Provider: JAIDEN MONTESINOS MD Surgery Visit Codes: [id number] INP/OBS CARE(HIGH) JAIDEN MONTESINOS MD Aug 29, 2025 14:08
[2025-08-30 01:00] VITALS: BP 91/51; PULSE 62; RESP 18; TEMP 97.8; O2SAT 95
[2025-08-30 05:00] VITALS: BP 94/66; PULSE 66; RESP 16; TEMP 97.7; O2SAT 97
[2025-08-30 06:44] LABS: Hematocrit 34.7 % (36.0-46.0); Hemoglobin 11.6 g/dL (12.2-16.2); Mean Corpuscular Hemoglobin 27.7 pg (28.0-32.0); Mean Corpuscular Volume 82.5 fL (80.0-100.0); Nucleated Red Blood Cells % 0.1 %
[2025-08-30 07:03] LABS: Alanine Aminotransferase 465 U/L (7-40); Albumin 3.3 g/dL (3.2-4.8); Alkaline Phosphatase 153 U/L (46-116); Anion Gap 11 (5-15); BUN/Creatinine Ratio 10.7 (10.0-20.0); Bilirubin, Total 0.3 mg/dL (0.2-1.0); Blood Urea Nitrogen 6 mg/dL (9-23); Calcium 8.1 mg/dL (8.7-10.4); Carbon Dioxide 24 mmol/L (20-31); Chloride 110 mmol/L (98-107); Glucose 76 mg/dL (74-106); Potassium 3.6 mmol/L (3.5-5.1); Sodium 145 mmol/L (136-145); Total Protein 5.6 g/dL (5.7-8.2)
[2025-08-30 07:19] LABS: Bilirubin, Direct 0.1 mg/dL (<0.3)
[2025-08-30 09:00] VITALS: BP 99/70; PULSE 65; RESP 18; TEMP 97.9; O2SAT 96
--- NOTE | 2025-08-30 10:10 | DVHPN2 ---
Reviewed: Care Plan, H&P, Labs, Medications, Previous Orders, Radiology Changes from previous H/P or p: No Changes Eyes: No Pain, No Vision change, No Conjunctivae inflammation, No Eyelid inflammation, No Other, No Redness ENT: No Ear pain, No Ear discharge, No Nose pain, No Nose discharge, No Nose congestion, No Mouth pain, No Mouth swelling, No Throat pain, No Throat swelling, No Other Cardiovascular: No Chest Pain, No Palpitations, No Orthopnea, No Paroxysmal Noc. Dyspnea, No Edema, No Lt Headedness, No Other Respiratory: No Cough, No Dry, No Shortness of breath, No SOB with excertion, No Wheezing, No Hemoptysis, No Pleuritic Pain, No Sputum, No Other Gastrointestinal: No Nausea, No Vomiting; Abdominal Pain; No Diarrhea, No Constipation, No Melena, No Hematochezia; Other (bloating) Genitourinary: No Dysuria, No Frequency, No Incontinence, No Hematuria, No Retention, No Other Musculoskeletal: No other, No neck pain, No shoulder pain, No arm pain, No back pain, No hand pain, No leg pain, No foot pain Skin: No Rash, No Lesions, No Jaundice, No Bruising, No Other Objective Vitals Vital Signs Date Time Temp Pulse Resp B/P (MAP) Pulse Ox O2 Delivery O2 Flow Rate FiO2 08/30/25 09:00 97.9 65 18 99/70 (80) 96 97.9 08/30/25 08:08 Room Air* 0 21 Intake/Output Intake and Output 08/30/25 07:00 Intake Total 5165 ml Balance 5165 ml Intake Oral 4015 ml IV Total 1150 ml # Voids 13 Medications Current Medications Medications Dose Ordered Sig/Joaquim Route Start Time Stop Time Status Last Admin Dose Admin Sodium Chloride 1,000 ml @ 100 mls/hr Q10H IV 08/28/25 10:45 08/29/25 21:57 100 MLS/HR Ondansetron HCl 4 mg Q4HP PRN IV 08/28/25 10:45 Docusate Sodium 100 mg BIDPRN PRN PO 08/28/25 10:45 Ceftriaxone Sodium 50 ml @ 100 mls/hr DAILY@09 IV 08/29/25 09:00 08/30/25 08:36 100 MLS/HR Pantoprazole Sodium 40 mg DAILY IV 08/29/25 10:00 08/30/25 08:36 40 MG Acetaminophen/ Hydrocodone Bitart 1 tab Q4HP PRN PO 08/28/25 15:15 Acetaminophen/ Hydrocodone Bitart 1 tab Q4HPRN PRN PO 08/28/25 15:15 08/29/25 09:33 1 TAB Acetaminophen 650 mg Q6HR PO 08/28/25 18:00 08/29/25 11:59 650 MG Ketorolac Tromethamine 15 mg Q8HR IV 08/28/25 22:00 09/02/25 21:59 08/30/25 05:15 15 MG Metronidazole 100 ml @ 100 mls/hr Q8HR IV 08/29/25 14:00 08/30/25 05:15 100 MLS/HR Laboratory Results Laboratory Tests 08/30/25 06:12 Chemistry Test 08/30/25 06:12 Albumin 3.3 g/dL (3.2-4.8) Calcium Level 8.1 mg/dL (8.7-10.4) L Total Protein 5.6 g/dL (5.7-8.2) L LFT Test 08/30/25 06:12 Alanine Aminotransferase (ALT) 465 U/L (7-40) H Alkaline Phosphatase 153 U/L (46-116) H Aspartate Amino Transferase (AST) 197 U/L (13-40) H Direct Bilirubin 0.1 mg/dL (<0.3) Total Bilirubin 0.3 mg/dL (0.2-1.0) Urinalysis Test 08/28/25 05:02 Urine Color Light-yellow (Yellow) Urine Clarity Clear (Clear) Urine pH 5.0 (5.0-9.0) Urine Specific [place] 1.010 (1.001-1.035) Urine Protein Negative (Negative) Urine Ketones Negative (Negative) Urine Blood Negative /uL (Negative) Urine Nitrite Negative (Negative) Urine Bilirubin Negative (Negative) Urine Urobilinogen Normal mg/dL (Negative) Urine Leukocyte Esterase Trace /uL (Negative) Urine RBC None seen /hpf (0 - 4) Urine Microscopic WBC 1 /HPF (0-5) Urine Squamous Epithelial Cells None seen /hpf (<5) Urine Bacteria None seen /hpf (None Seen) Urine Mucus Few (None Seen) Urine Glucose Normal mg/dL (Normal) Urine Test Negative (Negative) Labs and/or images reviewed: Labs reviewed by me, Image(s) reviewed by me Assessment/Plan Assessment/Plan #1 acute eulalio with gallstones with sepsis: ivf, s/p lap eulalio by Dr. Kaur on 08/29/2025, iv antibiotics Rocephin Flagyl #2 morbid obesity #3 migraines #4 gerd #5 Acute dehydration: IV fluids Patient feels better tolerating regular diet and wants to go home DELFINA King bedside Plan discussed with: Patient Date of Service: Aug 30, 2025 Billing Provider: CAITIE YOUNG MD Common Visit Codes: [id number] INP/OBS CARE(HIGH) CAITIE YOUNG MD Aug 30, 2025 10:10
--- NOTE | 2025-08-30 10:13 | DVHDS2 ---
Discharge Summary Date of Admission Aug 28, 2025 at 10:40 Date of Discharge: Aug 30, 2025 Admitting Diagnosis Right upper quadrant pain Wounds: Lap eulalio Labs/Diagnostic Data: Laboratory Results Test 08/30/25 06:12 08/28/25 13:42 08/28/25 05:02 08/28/25 03:12 White Blood Count 9.5 10^3/uL (4.4-10.8) Red Blood Count 4.20 10^6/uL (4.0-5.20) Hemoglobin 11.6 g/dL (12.2-16.2) Hematocrit 34.7 % (36.0-46.0) Mean Corpuscular Volume 82.5 fL (80.0-100.0) Mean Corpuscular Hemoglobin 27.7 pg (28.0-32.0) Mean Corpuscular Hemoglobin Concent 33.5 g/dL (32.0-36.0) Red Cell Distribution Width 15.1 % (11.8-14.3) Platelet Count 306 10^3/uL (140-450) Mean Platelet Volume 7.1 fL (6.9-10.8) Neutrophils (%) (Auto) 50.4 % (37.0-80.0) Lymphocytes (%) (Auto) 42.5 % (10.0-50.0) Monocytes (%) (Auto) 6.1 % (0.0-12.0) Eosinophils (%) (Auto) 0.5 % (0.0-7.0) Basophils (%) (Auto) 0.5 % (0.0-2.0) Neutrophils # (Auto) 4.8 10 ^3/uL (1.6-8.6) Lymphocytes # (Auto) 4.0 10 ^3/uL (0.4-5.4) Monocytes # (Auto) 0.6 10 ^3/uL (0-1.3) Eosinophils # (Auto) 0 10 ^3/uL (0-0.8) Basophils # (Auto) 0 10 ^3/uL (0-0.2) Nucleated Red Blood Cells 0.1 % Sodium Level 145 mmol/L (136-145) Potassium Level 3.6 mmol/L (3.5-5.1) Chloride Level 110 mmol/L (98-107) Carbon Dioxide Level 24 mmol/L (20-31) Anion Gap 11 (5-15) Blood Urea Nitrogen 6 mg/dL (9-23) Creatinine 0.56 mg/dL (0.550-1.02) Glomerular Filtration Rate Calc 124 mL/min (>90) BUN/Creatinine Ratio 10.7 (10.0-20.0) Serum Glucose 76 mg/dL (74-106) Calcium Level 8.1 mg/dL (8.7-10.4) Total Bilirubin 0.3 mg/dL (0.2-1.0) Direct Bilirubin 0.1 mg/dL (<0.3) Aspartate Amino Transferase (AST) 197 U/L (13-40) Alanine Aminotransferase (ALT) 465 U/L (7-40) Alkaline Phosphatase 153 U/L (46-116) Total Protein 5.6 g/dL (5.7-8.2) Albumin 3.3 g/dL (3.2-4.8) Prothrombin Time 10.5 sec (9.3-11.8) Prothrombin Time INR 0.99 (0.9-1.15) Beta HCG, Quantitative 0.7 mIU/mL (1.5-4.2) Urine Color Light-yellow (Yellow) Urine Clarity Clear (Clear) Urine pH 5.0 (5.0-9.0) Urine Specific [place] 1.010 (1.001-1.035) Urine Protein Negative (Negative) Urine Ketones Negative (Negative) Urine Blood Negative /uL (Negative) Urine Nitrite Negative (Negative) Urine Bilirubin Negative (Negative) Urine Urobilinogen Normal mg/dL (Negative) Urine Leukocyte Esterase Trace /uL (Negative) Urine RBC None seen /hpf (0 - 4) Urine Microscopic WBC 1 /HPF (0-5) Urine Squamous Epithelial Cells None seen /hpf (<5) Urine Bacteria None seen /hpf (None Seen) Urine Mucus Few (None Seen) Urine Glucose Normal mg/dL (Normal) Urine Test Negative (Negative) Lipase 61 U/L (12-53) Other Laboratory Tests 08/30/25 06:12 Brief Hx & Hospital Course: 35-year-old female admitted for acute right upper quadrant pain found to have gallstones with a cholecystitis underwent laparoscopic cholecystectomy by surgeon . Treated with the IV antibiotics IV fluids and pain medications. At the time of discharge patient is asymptomatic tolerating regular diet afebrile stable vital signs and wants to go home. On regular diet. Consults/Reason for consult Surgeon Operations or Procedures Lap eulalio Condition at Discharge: Fair Final Diagnosis/Problems List #1 acute eulalio with gallstones with sepsis: ivf, s/p lap eulalio by Dr. Kaur on 08/29/2025, iv antibiotics Rocephin Flagyl #2 morbid obesity #3 migraines #4 gerd Discharge Disposition: Home Discharge Instruct/Medications Diet: Regular Activity: Light activity Follow Up/Referral: Follow up with surgeon Dr. Kaur in 10 days Medications: Levaquin Flagyl Tramadol Scheduled Omeprazole (Omeprazole ), 40 MG PO DAILY, (Reported) 38 (Time Taken for discharge summary 38 minutes) Discharge Statement: "Patient was advised to return to the ER or call 911 if any headaches, dizziness, shortness of breath, chest pain, abdominal pain, bleeding, fevers, or worsening of medical condition. Patient was counseled about treatment plan, medications, possible side effects, patientverbalized understanding. All questions were answered to the best of my ability. This discharge took greater then 30 minutes in planning, reviewing documentation, counseling the patient, and discussing with other team members." ASSESSMENT ASSESSMENT Hospital Course Improved Assessment #1 acute eulalio with gallstones with sepsis: ivf, s/p lap eulalio by Dr. Kaur on 08/29/2025, iv antibiotics Rocephin Flagyl #2 morbid obesity #3 migraines #4 gerd Date of Service: Aug 30, 2025 Billing Provider: CAITIE YOUNG MD Common Visit Codes: [id number] DISCH DAY >30min CAITIE YOUNG MD Aug 30, 2025 10:13
[2025-08-30] MEDS ORDERED: LEVO500T91 PO (10:15)
[2025-08-30] MEDS ORDERED: TRAM-626 PO (10:15)
[2025-08-30] MEDS ORDERED: METR-344 PO (10:15)
--- NOTE | 2025-08-30 10:44 | DVHPN2 ---
Progress Note - Surgical Date Seen: Aug 30, 2025 Post op day Post op day: 2 Subjective Patient reports: Feels better (Patient doing well this morning, tolerating diet, ambulating, no abdominal pain complaints) Review of Systems: Deferred Objective Vital signs Vital Sign Date Time Temp Pulse Resp B/P (MAP) Pulse Ox O2 Delivery O2 Flow Rate FiO2 08/30/25 09:00 97.9 65 18 99/70 (80) 96 97.9 08/30/25 08:08 Room Air* 0 21 Total Intake and Output 08/29/25 08/29/25 08/30/25 15:00 23:00 07:00 Intake Total 1340 ml 3300 ml 525 ml Balance 1340 ml 3300 ml 525 ml Medications Current Medications Medications Dose Ordered Sig/Joaquim Route Start Time Stop Time Status Last Admin Dose Admin Sodium Chloride 1,000 ml @ 100 mls/hr Q10H IV 08/28/25 10:45 08/29/25 21:57 100 MLS/HR Ondansetron HCl 4 mg Q4HP PRN IV 08/28/25 10:45 Docusate Sodium 100 mg BIDPRN PRN PO 08/28/25 10:45 Ceftriaxone Sodium 50 ml @ 100 mls/hr DAILY@09 IV 08/29/25 09:00 08/30/25 08:36 100 MLS/HR Pantoprazole Sodium 40 mg DAILY IV 08/29/25 10:00 08/30/25 08:36 40 MG Acetaminophen/ Hydrocodone Bitart 1 tab Q4HP PRN PO 08/28/25 15:15 Acetaminophen/ Hydrocodone Bitart 1 tab Q4HPRN PRN PO 08/28/25 15:15 08/29/25 09:33 1 TAB Acetaminophen 650 mg Q6HR PO 08/28/25 18:00 08/29/25 11:59 650 MG Ketorolac Tromethamine 15 mg Q8HR IV 08/28/25 22:00 09/02/25 21:59 08/30/25 05:15 15 MG Metronidazole 100 ml @ 100 mls/hr Q8HR IV 08/29/25 14:00 08/30/25 05:15 100 MLS/HR Laboratory Laboratory Tests 08/30/25 06:12 Test 08/30/25 06:12 Range/Units Serum Glucose 76 74-106 mg/dL Examination: GENERAL:Normal (AAO x3), HEENT:Normal (No icterus), LUNGS:Normal (Nonlabored breathing with symmetric expansion), ABDOMEN:Normal (Nondistended, soft, depressible incision sites with overlying skin glue, infraumbilical ecchymosis, appropriately tender, no rebound, no guarding), SKIN:Normal (No jaundice) Labs and/or images reviewed: Labs reviewed by me (No leukocytosis, LFTs downtrending, bilirubin in normal level) Problem List/Assessment/Plan Assessment and Plan Mrs. Jordan is a 35-year-old female who is currently postop day 2 from laparoscopic cholecystectomy for early cholecystitis versus symptomatic cholelithiasis. Patient doing well this morning, afebrile and with vitals stable, tolerating diet, ambulating, LFTs downtrending, bilirubin level has always been within normal limits. Patient is cleared for discharge. 1 cleared for discharge per surgical standpoint 2. Low-fat diet for at least 1 month after the surgery 3. No lifting over 10 lb for 6 weeks 4. May shower, soap and water okay to run over incision sites. No bathing and/or swimming for 2 weeks. 5. For baseline pain control please use Tylenol and ibuprofen, follow instrumentation specialist's directions. For best results intercalate the medications. 6. Recommend [place] 5-325 mg 1 tab p.o. every 6 hours p.r.n. severe pain 7. Recommend MiraLax 1 packet daily PRN constipation 8. Follow-up at surgery Clinic with Dr. Kaur in 2 weeks, please call for appointment. Plan discussed with Plan discussed with: Patient Visit Coding Surgery Date of Service if different f: Aug 30, 2025 Billing Provider: JAIDEN MONTESINOS MD Surgery Visit Codes: [id number] INP/OBS CARE(HIGH) JAIDEN MONTESINOS MD Aug 30, 2025 10:44
== END 2025-08-30 11:05 | disposition home or self-care (01) | DRG 263 ==
LOC: ER 02:52 → EDBD 02:52 → OVERFLOW 10:40 → WEST WING 16:02
PROVIDERS: ADMIT Internal Medicine; ATTEND Internal Medicine
PROC: 0FT44ZZ Resection of Gallbladder, Percutaneous Endoscopic Approach (ICD-10-PCS; principal; 2025-08-28 13:46)
DX: K80.00 Calculus of gallbladder with acute cholecystitis without obstruction (principal); E66.01 Morbid (severe) obesity due to excess calories; F32.A Depression, unspecified; R74.01 Elevation of levels of liver transaminase levels; G43.909 Migraine, unspecified, not intractable, without status migrainosus; K21.9 Gastro-esophageal reflux disease without esophagitis; E86.0 Dehydration; K66.0 Peritoneal adhesions (postprocedural) (postinfection); K59.00 Constipation, unspecified; F41.9 Anxiety disorder, unspecified; Z83.3 Family history of diabetes mellitus; Z79.899 Other long term (current) drug therapy; Z68.38 Body mass index [BMI] 38.0-38.9, adult
CPT/HCPCS: 36415; 76705; 78226; 80053; 81001; 81025; 82248; 83690; 84702; 85025; 85610; 86850; 86870; 86900; 86901; 96361; 96374; 96375; G0378; J0131; J1100; J1885; J2003; J2250; J2405; J2470; J2704; J3490

== ENCOUNTER 2025-09-20 19:53 | Emergency (ER) | payer MEDICAID ==
[~2025-09-20] VITALS: Ht 162.6 cm; Wt 88.9 kg
[~2025-09-20 19:53] MED LIST: LEVO500T91 PO; METR-344 PO; OMEP-448 PO; TRAM-626 PO
--- NOTE | 2025-09-20 20:27 | ED.PDOC ---
History of Present Illness HPI Comments This is a 35-year-old female who comes in with chief complaint of right-sided abdominal pain. The patient has a cholecystectomy on 08/28 here at [facility]. The patient now states that she developed some pain today that she rates it has a 6/10. She also noticed some possible swelling to the right abdominal area. The patient denies any nausea, vomiting, fever or dysuria. Chief Complaint: Abdominal Pain Time Seen by MD: 20:03 Reviewed Notes: Nurses Notes, Medications, Allergies (No allergies to medications) Allergies: Coded Allergies: NO KNOWN ALLERGIES (Unverified , 08/28/25) Home Meds Active Scripts Tramadol HCl (Tramadol HCl) 50 Mg Tab, 50 MG PO QID PRN, #30 TAB Prov:CAITIE YOUNG MD 08/30/25 Metronidazole (Flagyl) 500 Mg Tab, 1 TAB PO TID, #20 TAB Prov:CAITIE YOUNG MD 08/30/25 Levofloxacin Hemihydrate (LEVAQUIN 500 MG) 500 Mg Tab, 1 TAB PO DAILY, #7 TAB Prov:CAITIE YOUNG MD 08/30/25 Reported Medications Omeprazole (Omeprazole Dr) 40 Mg Cap, 40 MG PO DAILY, CAP 08/28/25 Information Source: Patient Mode of Arrival: Ambulatory Severity: Moderate Timing: Days Duration: Since onset Prehospital treatment: None Associated signs and symptoms Right-sided abdominal pain Past Medical History PAST MEDICAL HISTORY: Anxiety, Depression Surgical History: Cholecystectomy, Tonsillectomy ACCOUNTING INSTRUCTOR History: Denies all ACCOUNTING INSTRUCTOR Hx Family History Family History (Other): Both parents have diabetes mellitus Social History Smoker: Non-Smoker Alcohol: Occasionally Drugs: Denies Drug Use Lives In: Home Constitutional: denies: chills, diaphoresis, fatigue, fever, malaise, sweats, weakness, others EENTM: denies: blurred vision, double vision, ear bleeding, ear discharge, ear drainage, ear pain, ear ringing, eye pain, eye redness, hearing loss, mouth pain, mouth swelling, nasal discharge, nose bleeding, nose congestion, nose pain, photophobia, tearing, throat pain, throat swelling, voice changes, others Respiratory: denies: cough, hemoptysis, orthopnea, SOB at rest, shortness of b reath, SOB with excertion, stridor, wheezing, others Cardiovascular: denies: chest pain, dizzy spells, diaphoresis, Dyspnea on exertion, edema, irregular heart beat, left arm pain, lightheadedness, palpitations, PND, syncope, others Gastrointestinal: reports: abdominal pain; denies: abdomen distended, blood streaked bowels, constipated, diarrhea, dysphagia, difficulty swallowing, hematemesis, melena, nausea, poor appetite, poor fluid intake, rectal bleeding, rectal pain, vomiting, others Genitourinary: denies: abnormal vagina bleeding, burning, dyspareunia, dysuria, flank pain, frequency, hematuria, incontinence, pain, , vagina discharge, urgency, others Neurological: denies: dizziness, fainting, headache, left sided numbness, left sided weakness, numbness, paresthesia, pre-existing deficit, right sided numbness, right sided weakness, seizure, speech problems, tingling, tremors, weakness, others Musculoskeletal: denies: back pain, gout, joint pain, joint swelling, muscle pain, muscle stiffness, neck pain, others Integumetry: denies: bruises, change in color, change in hair/nails, dryness, laceration, lesions, lumps, rash, wounds, others Allergic/Immunocompromised: denies: Difficulty Healing, Frequent Infections, Hives, Itching, others Hematologic/Lymphatic: denies: anemia, blood clots, easy bleeding, easy brui sing, swollen glands, others Endocrine: denies: excessive hunger, excessive sweating, excessive thirst, ex cessive urination, flushing, intolerance to cold, intolerance to heat, unexplained weight gain, unexplained weight loss, others Psychiatric: denies: anxiety, bipolar disorder, depression, hopeless, panic disorder, schizophrenia, sleepless, suicidal, others Physical Exam General Appearance: Mild Distress HEENT: Normal ENT Inspection, Pharynx Normal, TMs Normal Neck: Full Range of Motion, Non-Tender, Normal, Normal Inspection Respiratory: Chest Non-Tender, Lungs Clear, No Accessory Muscle Use, No Respiratory Distress, Normal Breath Sounds Cardiovascular: No Edema, No JVD, No Murmur, No Gallop, Normal Peripheral Pulses, Regular Rate/Rhythm Breast Exam: Deferred Gastrointestinal: No Organomegaly, No Pulsatile Mass, Normal Bowel Sounds, RUQ, Soft, Tenderness Genitalia: Deferred Pelvic: Deferred Rectal: Deferred Extremities: No calf tenderness, Normal capillary refill, Normal inspection, Normal range of motion, Non-tender, No pedal edema Musculoskeletal : Apperance: Normal Neurologic: Alert, template storage clerk II-XII nml as Tested, No Motor Deficits, Normal Affect, Normal Mood, No Sensory Deficits Cerebellar Function: Normal Reflexes: Normal Skin: Dry, Normal Color, Warm Lymphatic: No Adenopathy Was a procedure done? Was a procedure done?: No Differential Dx Considerations may include: Abscess, hematoma X-Ray, Labs, Meds, VS Vital Signs Date Time Temp Pulse Resp B/P (MAP) Pulse Ox O2 Delivery O2 Flow Rate FiO2 09/20/25 20:01 97.0 60 20 103/47 98 97.0 Lab Test 09/20/25 20:20 Range/Units White Blood Count 9.9 4.4-10.8 10^3/uL Red Blood Count 4.57 4.0-5.20 10^6/uL Hemoglobin 12.9 12.2-16.2 g/dL Hematocrit 38.1 36.0-46.0 % Mean Corpuscular Volume 83.4 80.0-100.0 fL Mean Corpuscular Hemoglobin 28.2 28.0-32.0 pg Mean Corpuscular Hemoglobin Concent 33.8 32.0-36.0 g/dL Red Cell Distribution Width 15.0 H 11.8-14.3 % Platelet Count 341 140-450 10^3/uL Mean Platelet Volume 7.3 6.9-10.8 fL Neutrophils (%) (Auto) 52.2 37.0-80.0 % Lymphocytes (%) (Auto) 39.3 10.0-50.0 % Monocytes (%) (Auto) 6.4 0.0-12.0 % Eosinophils (%) (Auto) 1.4 0.0-7.0 % Basophils (%) (Auto) 0.7 0.0-2.0 % Neutrophils # (Auto) 5.2 1.6-8.6 10 ^3/uL Lymphocytes # (Auto) 3.9 0.4-5.4 10 ^3/uL Monocytes # (Auto) 0.6 0-1.3 10 ^3/uL Eosinophils # (Auto) 0.1 0-0.8 10 ^3/uL Basophils # (Auto) 0.1 0-0.2 10 ^3/uL Nucleated Red Blood Cells 0.1 % Sodium Level 142 136-145 mmol/L Potassium Level 3.9 3.5-5.1 mmol/L Chloride Level 107 98-107 mmol/L Carbon Dioxide Level 25 20-31 mmol/L Anion Gap 10 5-15 Blood Urea Nitrogen 9 9-23 mg/dL Creatinine 0.77 0.550-1.02 mg/dL Glomerular Filtration Rate Calc 104 >90 mL/min BUN/Creatinine Ratio 11.7 10.0-20.0 Serum Glucose 84 74-106 mg/dL Calcium Level 9.4 8.7-10.4 mg/dL The patient's CBC and chemistry panel is within normal limits The CAT scan of the abdomen and pelvis is negative The patient is to follow up with the surgeon The patient will return to the emergency department's the condition worsens The patient understands and agrees with the management. Images Reviewed?: Images reviewed and evaluated by me Time of 1ST Reevaluation: 20:27 Reevaluation 1ST: Unchanged Patient Education/Counseling: Diagnosis, Treatment, Prognosis, Need For Follow Up Family Education/Counseling: No Family Present SEPSIS Sepsis Screen Date sepsis recognized/suspect: Sep 20, 2025 Time Sepsis recognized/suspect: 2003 Recent Procedure: No On Antibiotic Therapy: No Respiratory Rate >20: No Heart Rate >90: No Temp<36 C (96.8 F) or >38.3 C: No SBP <90 or MAP <65 mmHG: No New Acute Mental Status Change: No Is the patient on CPAP, BIPAP,: No Physician Orders Urinalysis (09/20/25 20:14) Ct Ab Pel Wo Con-No Oral Or Iv (09/20/25 20:14) Vital Signs Date Time Temp Pulse Resp B/P (MAP) Pulse Ox O2 Delivery O2 Flow Rate FiO2 09/20/25 20:01 97.0 60 20 103/47 98 97.0 Laboratory Tests Test 09/20/25 20:20 White Blood Count 9.9 10^3/uL (4.4-10.8) Departure 1 Departure Time of Disposition: 21:20 Impression: Primary Impression: Abdominal pain of unknown etiology Disposition: HOME / SELF CARE / HOMELESS Condition: Fair Discharged With: Self Critical Care Note Critical Care Time?: No Stability Stability form required: No Heart Score Heart Score: Heart Score Response (Comments) Value History N/A 0 EKG N/A 0 Age N/A 0 Risk Factors N/A 0 Troponin N/A 0 Total 0 ZAC RODRIGUEZ MD Sep 20, 2025 20:27
[2025-09-20 20:44] LABS: Chloride 107 mmol/L (98-107); Potassium 3.9 mmol/L (3.5-5.1); Sodium 142 mmol/L (136-145)
[2025-09-20 20:45] LABS: Anion Gap 10 (5-15); Calcium 9.4 mg/dL (8.7-10.4); Carbon Dioxide 25 mmol/L (20-31)
[2025-09-20 20:46] LABS: Hematocrit 38.1 % (36.0-46.0); Hemoglobin 12.9 g/dL (12.2-16.2); Mean Corpuscular Hemoglobin 28.2 pg (28.0-32.0); Mean Corpuscular Volume 83.4 fL (80.0-100.0); Nucleated Red Blood Cells % 0.1 %
[2025-09-20 20:50] LABS: BUN/Creatinine Ratio 11.7 (10.0-20.0); Glucose 84 mg/dL (74-106)
[2025-09-20 20:53] LABS: Blood Urea Nitrogen 9 mg/dL (9-23)
[2025-09-20 21:00] VITALS: BP 135/85; PULSE 85; RESP 15; TEMP 98.3; O2SAT 95
--- NOTE | 2025-09-20 21:10 | DVH ---
EXAM: CT CT AB PEL WO CON-NO ORAL OR IV History: pain Comparison Study: None TECHNIQUE: Multidetector spiral CT of the abdomen was performed from lung bases to pubic symphysis. Imaging was performed without IV contrast. Axial, coronal and sagittal multiplanar reformats were obtained from the axial data set by the technologist. Radiation Dose : 1. Abdomen/Pelvis: CTDIvol 13.94 mGy, DLP 867.73 mGy*cm. FINDINGS: Evaluation of solid organs is limited due to lack of intravenous contrast use. Lung Bases: No acute or significant lung base finding. Normal heart size. No pleural or pericardial effusion. Liver: The liver is normal in size. No focal lesions. Gallbladder and Biliary Tree: Gallbladder is surgically absent. Spleen: Unremarkable Pancreas: The pancreas is grossly normal in appearance. Adrenal Glands: Unremarkable Kidneys: Kidneys are grossly normal without calculi or hydronephrosis. Bladder: Grossly unremarkable for degree of distention. Bowel: The stomach is grossly normal in appearance. Small bowel and colon are normal in caliber and distribution. Normal appendix is visualized in the right lower quadrant without findings of appendicitis. Ascites: Absent Lymphadenopathy: No mesenteric, retroperitoneal or periportal lymphadenopathy. Abdominal Wall and Mesentery: Unremarkable. Vasculature: The visualized abdominal aorta is normal in size and caliber. Evaluation of abdominal and pelvic vessels is limited due to lack of intravenous contrast. Pelvic Organs: Unremarkable Musculoskeletal: No aggressive focal bony lesions, acute fractures or dislocation. IMPRESSION: No acute abdominal or pelvic findings. Radiation optimization: All CT scans at this facility use at least one of these dose optimization techniques: automated exposure control mA and/or kV adjustment per patient size (includes targeted exams where dose is matched to clinical indication) or iterative reconstruction.
== END 2025-09-20 22:00 | disposition home or self-care (01) ==
LOC: ER 19:53
DX: R10.9 Unspecified abdominal pain (principal); Z90.89 Acquired absence of other organs; Z90.49 Acquired absence of other specified parts of digestive tract; Z79.899 Other long term (current) drug therapy
CPT/HCPCS: 36415; 74176; 80048; 85025